=== PATIENT | female | born 1940 | race Caucasian/White ===

== ENCOUNTER 2020-10-20 09:40 | Emergency (ER) | payer OTHER, MEDICARE ==
[~2020-10-20] VITALS: Ht 157.5 cm; Wt 63.5 kg
[2020-10-20 09:40] VITALS: BP_SYST 167
[~2020-10-20 09:40] MED LIST: ALPR0.25 PO; APIX5TAB PO; GABA-531 PO; HYDR-4497 PO; METO-290 PO; POTA8TAB4 PO; PRO40 PO; THEO200T22 PO; TRAZ-250 PO
[2020-10-20] MEDS ORDERED: NACL 0.9% 1,000 ML IV ONE (10:00)
[2020-10-20 10:32] LABS: BILIRUBIN,URINE NEGATIVE (NEGATIVE); BLOOD, URINE NEGATIVE (NEGATIVE); CLARITY/URINE CLEAR (CLEAR); COLOR,URINE YELLOW (YELLOW); GLUCOSE,URINE NEGATIVE (NEGATIVE); KETONES,URINE NEGATIVE (NEGATIVE); LEUKOCYTE ESTERASE ,URINE 1+ (NEGATIVE); NITRITE, URINE NEGATIVE (NEGATIVE); PROTEIN URINE 1+ (NEGATIVE); UROBILINOGEN,URINE 0.2 (0.2-1.0)
[2020-10-20 10:36] LABS: BASOPHILS # (AUTO) 0.1 K/uL (0.0-0.2); BASOPHILS % (AUTO) 0.5 % (0.0-2.0); EOSINOPHILS # (AUTO) 0.3 K/uL (0.0-0.4); EOSINOPHILS % (AUTO) 2.5 % (0.0-4.0); HEMOGLOBIN 14.1 g/dL (12.0-16.0); LYMPHOCYTES # (AUTO) 0.9 K/uL (1.0-5.5); LYMPHOCYTES % (AUTO) 7.4 % (20.5-51.5); MEAN CORPUSCULAR HEMOGLOBIN 32 pg (27-31); MEAN CORPUSCULAR HGB CONC 34 % (32-36); MEAN CORPUSCULAR VOLUME 94 fL (79.0-98.0); MONOCYTES % (AUTO) 8.1 % (1.7-9.3); NEUTROPHILS # (AUTO) 9.7 K/uL (1.8-7.7); NEUTROPHILS % (AUTO) 81.5 % (40.0-70.0); PLATELET COUNT (AUTO) 240 K/uL (130-430); RED BLOOD CELL COUNT(AUTO) 4.37 MIL/uL (4.2-6.2); RED CELL DISTRIBUTION WIDTH 12.3 % (9.0-15.0); WHITE BLOOD COUNT (AUTO) 11.9 K/uL (4.8-10.8)
[2020-10-20 10:45] LABS: ANION GAP 12 (5-15); CALCIUM 9.7 mg/dL (8.4-11.0); CHLORIDE 101 mmol/L (98-107); CREATININE 1.06 mg/dL (0.55-1.30); GLUCOSE 138 mg/dL (70-99); SODIUM SERUM 138 mmol/L (136-145); UREA NITROGEN, BLOOD 10 mg/dL (8-21)
[2020-10-20 10:46] LABS: PROTHROMBIN TIME 10.2 SECS (9.5-12.5)
[2020-10-20 10:50] LABS: ALANINE AMINOTRANSFERASE 10 U/L (12-78); ALBUMIN 3.8 g/dL (3.4-4.8); ASPARTATE AMINOTRANSFERASE 14 U/L (10-37); TOTAL BILIRUBIN 1.1 mg/dL (0.0-1.0)
[2020-10-20 10:59] LABS: BACTERIA,URINE RARE /HPF (None Seen); RBC,URINE 0-3 /HPF (0-3)
[2020-10-20] MEDS ORDERED: cefTRIAXone 1 GM in D5W 50 ML IV ONE (11:15)
[2020-10-20] MEDS ORDERED: cefTRIAXone 1 GM VIAL ONE (11:22)
[2020-10-20] MEDS ORDERED: POTASSIUM CHLORIDE 20 MEQ TAB.PRT.SR PO ONE (11:30)
[2020-10-20] MEDS ORDERED: ONDA-8 TL (11:49)
[2020-10-20] MEDS ORDERED: cefdinir PO (11:49)
[2020-10-20 12:30] VITALS: BP_SYST 167
== END 2020-10-20 12:30 | disposition home or self-care (01) ==
LOC: SED 09:40
DX: E86.0 Dehydration (principal); N39.0 Urinary tract infection, site not specified; K44.9 Diaphragmatic hernia without obstruction or gangrene; I10 Essential (primary) hypertension; Z88.1 Allergy status to other antibiotic agents; Z88.5 Allergy status to narcotic agent; Z79.899 Other long term (current) drug therapy
CPT/HCPCS: 36415; 71045; 74176; 76376; 80053; 81000; 83605; 85025; 85610; 87040; 87086; 96365; 99285; J0696; J7030

== ENCOUNTER 2020-10-28 09:59 | Emergency (ER) | payer OTHER, MEDICARE ==
[~2020-10-28] VITALS: Ht 157.5 cm; Wt 63.5 kg
[~2020-10-28 09:59] MED LIST changes: +ONDA-8 TL; +cefdinir PO
[2020-10-28 10:09] VITALS: BP_SYST 136
[2020-10-28] MEDS ORDERED: NACL 0.9% 1,000 ML IV ONE (12:00)
[2020-10-28 12:17] LABS: BILIRUBIN,URINE NEGATIVE (NEGATIVE); BLOOD, URINE NEGATIVE (NEGATIVE); COLOR,URINE YELLOW (YELLOW); GLUCOSE,URINE NEGATIVE (NEGATIVE); KETONES,URINE NEGATIVE (NEGATIVE); LEUKOCYTE ESTERASE ,URINE TRACE (NEGATIVE); NITRITE, URINE NEGATIVE (NEGATIVE); PROTEIN URINE 1+ (NEGATIVE); UROBILINOGEN,URINE 0.2 (0.2-1.0)
[2020-10-28 12:19] LABS: CLARITY/URINE SLIGHTLY HAZY (CLEAR)
[2020-10-28 12:23] LABS: BACTERIA,URINE FEW /HPF (None Seen); RBC,URINE NONE SEEN /HPF (0-3); WBC,URINE 0-3 /HPF (0-3)
[2020-10-28 12:24] LABS: MUCUS,URINE 1+ /LPF (None Seen)
[2020-10-28 12:35] LABS: BASOPHILS % (AUTO) 0.2 % (0.0-2.0); EOSINOPHILS # (AUTO) 0.3 K/uL (0.0-0.4); EOSINOPHILS % (AUTO) 2.4 % (0.0-4.0); HEMATOCRIT 40.8 % (36-48); HEMOGLOBIN 13.9 g/dL (12.0-16.0); LYMPHOCYTES # (AUTO) 0.9 K/uL (1.0-5.5); LYMPHOCYTES % (AUTO) 7.7 % (20.5-51.5); MEAN CORPUSCULAR HEMOGLOBIN 32 pg (27-31); MEAN CORPUSCULAR HGB CONC 34 % (32-36); MEAN CORPUSCULAR VOLUME 94 fL (79.0-98.0); MONOCYTES # (AUTO) 0.9 K/uL (0.0-1.0); MONOCYTES % (AUTO) 7.8 % (1.7-9.3); NEUTROPHILS # (AUTO) 9.9 K/uL (1.8-7.7); NEUTROPHILS % (AUTO) 81.9 % (40.0-70.0); PLATELET COUNT (AUTO) 219 K/uL (130-430); RED BLOOD CELL COUNT(AUTO) 4.35 MIL/uL (4.2-6.2); RED CELL DISTRIBUTION WIDTH 12.1 % (9.0-15.0)
[2020-10-28 12:39] LABS: ANION GAP 10 (5-15); CALCIUM 9.5 mg/dL (8.4-11.0); CHLORIDE 100 mmol/L (98-107); CREATININE 1.09 mg/dL (0.55-1.30); GLUCOSE 107 mg/dL (70-99); POTASSIUM 3.3 mmol/L (3.5-5.1); SODIUM SERUM 138 mmol/L (136-145); UREA NITROGEN, BLOOD 12 mg/dL (8-21)
[2020-10-28 12:43] LABS: INR 1.2 (0.8-1.2); PROTHROMBIN TIME 12.6 SECS (9.5-12.5)
[2020-10-28 12:45] LABS: ALANINE AMINOTRANSFERASE 11 U/L (12-78); ALBUMIN 3.6 g/dL (3.4-4.8); ASPARTATE AMINOTRANSFERASE 15 U/L (10-37); TOTAL BILIRUBIN 1.3 mg/dL (0.0-1.0)
[2020-10-28 14:35] VITALS: BP_SYST 143
== END 2020-10-28 14:35 | disposition home or self-care (01) ==
LOC: SED 09:59
DX: A08.8 Other specified intestinal infections (principal); R10.9 Unspecified abdominal pain; Z88.1 Allergy status to other antibiotic agents; Z79.899 Other long term (current) drug therapy
CPT/HCPCS: 36415; 71045; 80053; 81000; 83605; 85025; 85610; 85730; 87040; 87086; 93005; 96360; 99285; J7030

== ENCOUNTER 2020-10-30 09:11 | Inpatient (IN) | payer OTHER, MEDICARE, SELFPAY ==
[~2020-10-30] VITALS: Ht 157.5 cm; Wt 65.8 kg
[2020-10-30 09:41] VITALS: BP_SYST 154
[2020-10-30] MEDS ORDERED: DIPHENOXYLATE HCL/ATROP SULF 2.5 MG TAB PO ONE (10:00)
[2020-10-30] MEDS ORDERED: NACL 0.9% 1,000 ML IV ONE (10:00)
[2020-10-30] MEDS ORDERED: KETOROLAC TROMETHAMINE 15 MG VIAL IVP ONE (10:00)
[2020-10-30 10:43] LABS: BASOPHILS % (AUTO) 0.5 % (0.0-2.0); EOSINOPHILS # (AUTO) 0.4 K/uL (0.0-0.4); EOSINOPHILS % (AUTO) 4.2 % (0.0-4.0); HEMOGLOBIN 13.4 g/dL (12.0-16.0); LYMPHOCYTES # (AUTO) 1.2 K/uL (1.0-5.5); LYMPHOCYTES % (AUTO) 14.2 % (20.5-51.5); MEAN CORPUSCULAR HEMOGLOBIN 32 pg (27-31); MEAN CORPUSCULAR HGB CONC 34 % (32-36); MEAN CORPUSCULAR VOLUME 94 fL (79.0-98.0); MONOCYTES # (AUTO) 0.8 K/uL (0.0-1.0); MONOCYTES % (AUTO) 9.8 % (1.7-9.3); NEUTROPHILS % (AUTO) 71.3 % (40.0-70.0); PLATELET COUNT (AUTO) 236 K/uL (130-430); RED BLOOD CELL COUNT(AUTO) 4.15 MIL/uL (4.2-6.2); RED CELL DISTRIBUTION WIDTH 12.1 % (9.0-15.0); WHITE BLOOD COUNT (AUTO) 8.4 K/uL (4.8-10.8)
[2020-10-30 10:45] LABS: BILIRUBIN,URINE NEGATIVE (NEGATIVE); BLOOD, URINE NEGATIVE (NEGATIVE); CLARITY/URINE CLEAR (CLEAR); COLOR,URINE YELLOW (YELLOW); GLUCOSE,URINE NEGATIVE (NEGATIVE); KETONES,URINE NEGATIVE (NEGATIVE); LEUKOCYTE ESTERASE ,URINE 3+ (NEGATIVE); NITRITE, URINE NEGATIVE (NEGATIVE); PH,URINE 6.5 (5.0-8.0); PROTEIN URINE 1+ (NEGATIVE); UROBILINOGEN,URINE 0.2 (0.2-1.0)
[2020-10-30 10:53] LABS: BACTERIA,URINE None Seen /HPF (None Seen); RBC,URINE 0-3 /HPF (0-3)
[2020-10-30 11:05] LABS: ALANINE AMINOTRANSFERASE 14 U/L (12-78); ALBUMIN 3.3 g/dL (3.4-4.8); ANION GAP 12 (5-15); ASPARTATE AMINOTRANSFERASE 13 U/L (10-37); CALCIUM 9.2 mg/dL (8.4-11.0); CHLORIDE 104 mmol/L (98-107); CREATININE 1.06 mg/dL (0.55-1.30); GLUCOSE 127 mg/dL (70-99); LIPASE 82 U/L (73-393); POTASSIUM 3.3 mmol/L (3.5-5.1); SODIUM SERUM 141 mmol/L (136-145); TOTAL BILIRUBIN 0.9 mg/dL (0.0-1.0); UREA NITROGEN, BLOOD 9 mg/dL (8-21)
[2020-10-30] MEDS ORDERED: APIX2.5T PO (11:27)
[2020-10-30] MEDS ORDERED: METO25TA6 PO (11:27)
[2020-10-30] MEDS ORDERED: FURO-150 PO (11:29)
[2020-10-30] MEDS ORDERED: AMLO10TA88 PO (11:29)
[2020-10-30] MEDS ORDERED: VANCOMYCIN HCL Non-Formulary 125 MG CAPSULE PO ONE (11:30)
[2020-10-30] MEDS ORDERED: VANCOMYCIN HCL ORAL SOLUTION 250 MG/5 ML, 80 ML PO ONE (12:30)
[2020-10-30] MEDS ORDERED: ONDANSETRON HCL 4 MG/2 ML VIAL IVP PRN (13:45)
[2020-10-30] MEDS ORDERED: HYDROcodone/ACETAMIN 7.5-325 MG TAB PO PRN (13:45)
[2020-10-30] MEDS ORDERED: NALOXONE HCL 0.4 MG/ML AMP (NARCAN) IVP PRN (13:45)
[2020-10-30] MEDS ORDERED: ACETAMINOPHEN 325 MG TABLET PO PRN (13:45)
[2020-10-30] MEDS ORDERED: HYDROcodone/ACETAMIN 5-325 MG TAB (NORCO/ VICODIN) PO PRN (13:45)
[2020-10-30] MEDS ORDERED: ALPRAZolam 0.25 MG TABLET PO PRN (13:45)
[2020-10-30] MEDS ORDERED: POTASSIUM CHLORIDE 40 MEQ in NS 250 ML IV ONE (14:00)
[2020-10-30 14:12] VITALS: BP_SYST 153
[2020-10-30] MEDS: D5/0.45 NS 1,000 ML IV SCH ×2 (15:25→22:03)
[2020-10-30 16:00] VITALS: BP_SYST 136
[2020-10-30 20:00] VITALS: BP_SYST 135
[2020-10-30] MEDS: METOPROLOL TARTRATE 25 MG TABLET PO SCH (20:30)
[2020-10-30] MEDS: APIXABAN 2.5 MG TABLET PO SCH (20:31)
[2020-10-31 00:45] VITALS: BP_SYST 141
[2020-10-31 06:26] LABS: BASOPHILS # (AUTO) 0.1 K/uL (0.0-0.2); BASOPHILS % (AUTO) 0.9 % (0.0-2.0); EOSINOPHILS # (AUTO) 0.4 K/uL (0.0-0.4); EOSINOPHILS % (AUTO) 5.9 % (0.0-4.0); HEMATOCRIT 35.2 % (36-48); LYMPHOCYTES # (AUTO) 1.1 K/uL (1.0-5.5); LYMPHOCYTES % (AUTO) 15.5 % (20.5-51.5); MEAN CORPUSCULAR HEMOGLOBIN 33 pg (27-31); MEAN CORPUSCULAR HGB CONC 34 % (32-36); MEAN CORPUSCULAR VOLUME 95 fL (79.0-98.0); MONOCYTES # (AUTO) 0.7 K/uL (0.0-1.0); MONOCYTES % (AUTO) 10.5 % (1.7-9.3); NEUTROPHILS # (AUTO) 4.7 K/uL (1.8-7.7); NEUTROPHILS % (AUTO) 67.2 % (40.0-70.0); PLATELET COUNT (AUTO) 220 K/uL (130-430); RED CELL DISTRIBUTION WIDTH 12.4 % (9.0-15.0)
[2020-10-31 06:54] LABS: ALBUMIN 2.7 g/dL (3.4-4.8); ANION GAP 9 (5-15); ASPARTATE AMINOTRANSFERASE 13 U/L (10-37); CALCIUM 8.9 mg/dL (8.4-11.0); CHLORIDE 108 mmol/L (98-107); CREATININE 0.77 mg/dL (0.55-1.30); GLUCOSE 103 mg/dL (70-99); PHOSPHORUS 3.3 mg/dL (2.7-4.5); POTASSIUM 3.6 mmol/L (3.5-5.1); SODIUM SERUM 141 mmol/L (136-145); TOTAL BILIRUBIN 0.8 mg/dL (0.0-1.0); UREA NITROGEN, BLOOD 10 mg/dL (8-21)
[2020-10-31 08:00] VITALS: BP_SYST 148
[2020-10-31 08:20] LABS: ALANINE AMINOTRANSFERASE 10 U/L (12-78)
[2020-10-31] MEDS: POTASSIUM CHLORIDE 8 MEQ TABLET.SA PO SCH (09:15)
[2020-10-31] MEDS: FUROSEMIDE 20 MG TABLET PO SCH (09:15)
[2020-10-31] MEDS: METOPROLOL TARTRATE 25 MG TABLET PO SCH ×2 (09:16→21:33)
[2020-10-31] MEDS: APIXABAN 2.5 MG TABLET PO SCH ×2 (09:17→21:33)
[2020-10-31] MEDS: amLODIPine BESYLATE 10 MG TABLET PO SCH (09:18)
[2020-10-31] MEDS: PANTOPRAZOLE SODIUM 40 MG TAB PO SCH (09:18)
[2020-10-31 12:19] VITALS: BP_SYST 144
[2020-10-31] MEDS: D5/0.45 NS 1,000 ML IV SCH ×2 (16:19→21:34)
[2020-10-31 16:36] VITALS: BP_SYST 137
[2020-10-31 20:00] VITALS: BP_SYST 144
[2020-11-01] VITALS: BP_SYST 135
[2020-11-01] MEDS: D5/0.45 NS 1,000 ML IV SCH (05:18)
[2020-11-01 06:30] LABS: BASOPHILS # (AUTO) 0.1 K/uL (0.0-0.2); BASOPHILS % (AUTO) 1.1 % (0.0-2.0); EOSINOPHILS # (AUTO) 0.4 K/uL (0.0-0.4); EOSINOPHILS % (AUTO) 7.1 % (0.0-4.0); HEMATOCRIT 36.4 % (36-48); HEMOGLOBIN 12.2 g/dL (12.0-16.0); LYMPHOCYTES # (AUTO) 1.4 K/uL (1.0-5.5); MEAN CORPUSCULAR HEMOGLOBIN 32 pg (27-31); MEAN CORPUSCULAR HGB CONC 34 % (32-36); MEAN CORPUSCULAR VOLUME 95 fL (79.0-98.0); MONOCYTES # (AUTO) 0.7 K/uL (0.0-1.0); MONOCYTES % (AUTO) 12.3 % (1.7-9.3); NEUTROPHILS # (AUTO) 3.4 K/uL (1.8-7.7); NEUTROPHILS % (AUTO) 56.5 % (40.0-70.0); PLATELET COUNT (AUTO) 227 K/uL (130-430); RED BLOOD CELL COUNT(AUTO) 3.83 MIL/uL (4.2-6.2); RED CELL DISTRIBUTION WIDTH 12.3 % (9.0-15.0); WHITE BLOOD COUNT (AUTO) 6.1 K/uL (4.8-10.8)
[2020-11-01 06:49] LABS: ANION GAP 11 (5-15); CALCIUM 8.9 mg/dL (8.4-11.0); CHLORIDE 108 mmol/L (98-107); CREATININE 1.02 mg/dL (0.55-1.30); GLUCOSE 110 mg/dL (70-99); SODIUM SERUM 141 mmol/L (136-145); UREA NITROGEN, BLOOD 13 mg/dL (8-21)
[2020-11-01] MEDS: PANTOPRAZOLE SODIUM 40 MG TAB PO SCH (09:05)
[2020-11-01] MEDS: METOPROLOL TARTRATE 25 MG TABLET PO SCH (09:05)
[2020-11-01] MEDS: POTASSIUM CHLORIDE 8 MEQ TABLET.SA PO SCH (09:06)
[2020-11-01] MEDS: FUROSEMIDE 20 MG TABLET PO SCH (09:06)
[2020-11-01] MEDS: APIXABAN 2.5 MG TABLET PO SCH (09:06)
[2020-11-01] MEDS: amLODIPine BESYLATE 10 MG TABLET PO SCH (09:07)
[2020-11-01 12:49] VITALS: BP_SYST 139
[2020-11-01] MEDS ORDERED: SULF1TAB48 PO (13:36)
[2020-11-01 14:31] VITALS: BP_SYST 152
== END 2020-11-01 15:00 | disposition home or self-care (01) | DRG 392 ==
LOC: SED 09:11 → SMU 12:02
PROVIDERS: ADMIT Preventive Medicine Preventive Medicine/Occupational Environmental Medicine; ATTEND Preventive Medicine Preventive Medicine/Occupational Environmental Medicine
DX: K52.9 Noninfective gastroenteritis and colitis, unspecified (principal); N39.0 Urinary tract infection, site not specified; Z20.822 Contact with and (suspected) exposure to COVID-19; I10 Essential (primary) hypertension; F41.9 Anxiety disorder, unspecified; G62.9 Polyneuropathy, unspecified; G89.4 Chronic pain syndrome; I48.91 Unspecified atrial fibrillation; M81.0 Age-related osteoporosis without current pathological fracture; Z88.1 Allergy status to other antibiotic agents; Z88.5 Allergy status to narcotic agent; Z79.899 Other long term (current) drug therapy; Z90.710 Acquired absence of both cervix and uterus; Z85.01 Personal history of malignant neoplasm of esophagus; Z87.891 Personal history of nicotine dependence
CPT/HCPCS: 36415; 80048; 80053; 81000; 83690; 83735; 84100; 85025; 87045-TC; 87086; 87230-TC; 89055; 96361; 96374; 99285; J1885; J3370; J3480; J7050